=== PATIENT | female | born 1990 | race Caucasian/White ===

== ENCOUNTER 2020-07-12 14:11 | Emergency (ER) | payer MEDICAID ==
[~2020-07-12] VITALS: Ht 162.6 cm; Wt 82.0 kg
[2020-07-12 14:24] VITALS: BP 144/77
== END 2020-07-12 16:01 | disposition home or self-care (01) ==
LOC: EMS 14:16
DX: L60.0 Ingrowing nail (principal); L03.032 Cellulitis of left toe
CPT/HCPCS: 99283

== ENCOUNTER 2020-12-23 04:51 | Emergency (ER) | payer SELFPAY ==
[~2020-12-23] VITALS: Ht 162.6 cm; Wt 86.4 kg
[2020-12-23 04:52] VITALS: BP 127/76
== END 2020-12-23 06:32 | disposition home or self-care (01) ==
LOC: EMS 04:52
DX: S90.821A Blister (nonthermal), right foot, initial encounter (principal); S90.421A Blister (nonthermal), right great toe, initial encounter; S90.424A Blister (nonthermal), right lesser toe(s), initial encounter; L03.115 Cellulitis of right lower limb; X58.XXXA Exposure to other specified factors, initial encounter; Y93.89 Activity, other specified; Y92.89 Other specified places as the place of occurrence of the external cause; Y99.8 Other external cause status
CPT/HCPCS: 99283